=== PATIENT | male | born 1980 ===

== ENCOUNTER 2022-09-30 11:28 | Emergency (ER) | payer OTHER ==
[~2022-09-30] VITALS: Ht 170.2 cm; Wt 90.7 kg
[2022-09-30] MEDS ORDERED: ALTACE10 MG (12:06)
[2022-09-30] MEDS ORDERED: ZOLOFT100 MG (12:07)
[2022-09-30] MEDS ORDERED: ATIVAN0.5 M1 (12:09)
[2022-09-30] MEDS ORDERED: TRAZODONE HCL150 MG (12:09)
[2022-09-30] MEDS ORDERED: RESTORIL30 M1 (12:10)
== END 2022-09-30 15:15 | disposition home or self-care (01) ==
LOC: ER 11:28
DX: S93.492A Sprain of other ligament of left ankle, initial encounter (principal); W18.39XA Other fall on same level, initial encounter; Y93.89 Activity, other specified; Y92.413 State road as the place of occurrence of the external cause; I10 Essential (primary) hypertension; S83.8X1A Sprain of other specified parts of right knee, initial encounter